=== PATIENT | female | born 1950 | race African-American/Black ===

== ENCOUNTER 2019-01-28 18:02 | Emergency (ER) | payer MEDICARE, MEDICAID ==
[~2019-01-28] VITALS: Ht 162.6 cm; Wt 57.0 kg
[~2019-01-28 18:02] MED LIST: ASPI-986 PO; BENA40TA9 PO; GLIP5TAB12; INSU100C11 SQ; INSU3INS8 SQ; LIP40 PO; METO-385 PO; PRAV80TA21; QUIN20TA30; RANI150T7; SITA1TAB8
[2019-01-28] MEDS ORDERED: ALBUTEROL (0.083%) 2.5MG/3ML NEB HHN STA (18:31)
[2019-01-28] MEDS ORDERED: IPRATROPIUM BROMIDE (0.02%) 0.5MG/2.5ML NEB HHN STA (18:31)
[2019-01-28] MEDS ORDERED: PREDNISONE 20MG TABLET PO ONE (19:00)
[2019-01-28 19:04] LABS: HEMATOCRIT. 36.4 % (36.0-48.0); HEMOGLOBIN. 11.4 g/dL (12.0-16.0); MEAN CORPUSCULAR HEMOGLOBIN 19.2 pg (28.0-32.0); MEAN CORPUSCULAR VOLUME 61.1 fL (81.0-99.0); MEAN PLATELET VOLUME 9.7 fl (7.4-10.4); MONOCYTES % 9.8 % (2.0-8.0); NEUTROPHILS % 70.2 % (40.0-76.0); PLATELET 134 x1000/uL (130-400); RED BLOOD CELL COUNT 5.96 mill/uL (4.2-5.4); RED CELL DISTRIBUTION WIDTH 16.7 % (11.6-14.6)
[2019-01-28 19:11] LABS: CHLORIDE 101 mEq/L (98-107); INR 1.1; PROTHROMBIN TIME 10.6 sec (9.1-11.1)
[2019-01-28] MEDS ORDERED: DOXYCYCLINE HYCLATE 100MG CAPSULE PO ONE (20:00)
[2019-01-28 20:20] LABS: PLATELET ESTIMATE NORMAL
[2019-01-28] MEDS ORDERED: INSULIN REGULAR (HUMULIN R) 300UNITS/3ML SUBCUT ONE (23:15)
[2019-01-29 01:16] VITALS: BP 128/60
[2019-01-29] MEDS ORDERED: INSULIN REGULAR (HUMULIN R) 300UNITS/3ML SUBCUT ONE (01:30)
== END 2019-01-29 01:55 | disposition short-term general hospital (02) ==
LOC: ER 18:02 → CANBEDREQ 01-29 03:18
DX: R06.00 Dyspnea, unspecified (principal); J40 Bronchitis, not specified as acute or chronic; J44.9 Chronic obstructive pulmonary disease, unspecified; E78.00 Pure hypercholesterolemia, unspecified; I10 Essential (primary) hypertension; E11.9 Type 2 diabetes mellitus without complications; Z79.4 Long term (current) use of insulin; Z88.5 Allergy status to narcotic agent; Z88.8 Allergy status to other drugs, medicaments and biological substances; Z79.82 Long term (current) use of aspirin
CPT/HCPCS: 36415; 71045; 80053; 82962; 83605; 83880; 84484; 85025; 85610; 87804; 93005; 94640; 96372; 99285; J1815; J7512; J7611

== ENCOUNTER 2020-06-20 01:57 | Inpatient (IN) | payer MEDICARE, MEDICAID ==
[~2020-06-20] VITALS: Ht 152.4 cm; Wt 58.6 kg
[~2020-06-20 01:57] MED LIST changes: +ALBU18HF2 IH; +ASPI-1497 MT; -ASPI-986 PO; +FLUT1DIS3 INH; +GLIP10TA10 MT; +MED4 MT; +MONT10TA26 PO; +P20 MT
[2020-06-20] MEDS ORDERED: IPRATROPIUM BROMIDE (0.02%) 0.5MG/2.5ML NEB HHN STA (02:34)
[2020-06-20] MEDS ORDERED: METHYLPREDNISOLONE SOD SUCC 125 MG/2 ML VIAL IV STA (02:34)
[2020-06-20] MEDS ORDERED: ONDANSETRON HCL 4MG/2ML INJ IV STA (02:34)
[2020-06-20] MEDS ORDERED: SODIUM CHLORIDE 0.9% 1,000 ML IV ONE (02:36)
[2020-06-20 03:04] LABS: CHLORIDE 102 mEq/L (98-107)
[2020-06-20] MEDS: ALBUTEROL (0.083%) 2.5MG/3ML NEB HHN SCH (03:08)
[2020-06-20 03:09] LABS: BASOPHILS % 1.1 % (0.0-2.0); EOSINOPHILS % 4.3 % (0.0-5.0); HEMATOCRIT. 37.1 % (36.0-48.0); HEMOGLOBIN. 11.3 g/dL (12.0-16.0); LYMPHOCYTES % 30.5 % (20.0-50.0); MEAN CORPUSCULAR HEMOGLOBIN 19.8 pg (28.0-32.0); MEAN CORPUSCULAR VOLUME 64.8 fL (81.0-99.0); MEAN PLATELET VOLUME 9.8 fl (7.4-10.4); MONOCYTES % 4.5 % (2.0-8.0); NEUTROPHILS % 59.6 % (40.0-76.0); PLATELET 139 x1000/uL (130-400); RED BLOOD CELL COUNT 5.73 mill/uL (4.2-5.4); RED CELL DISTRIBUTION WIDTH 18.3 % (11.6-14.6)
[2020-06-20 03:15] LABS: BG CARBOXYHEMOGLOBIN 0.3 % (0.5-1.5); BG DEOXYHEMOGLOBIN 0.6 % (0.0-5.0); BG FRACTION INSPIRED OXYGEN 100; BG HCO3 ACT 23.5 mmol/L (22.0-26.0); BG METHEMOGLOBIN 0.6 % (0.0-1.5); BG OXYGEN SATURATION 99.4 % (92.0-98.5); BG OXYHEMOGLOBIN 98.5 % (94.0-97.0); BG PCO2 53.5 mmHg (35.0-45.0); BG PO2 256.7 mmHg (75.0-100.0); BG SAMPLE SITE RIGHT RADIAL; BG TOTAL HEMOGLOBIN 11.5 g/dL (12.0-18.0); BG VENT MODE MASK - NRB
[2020-06-20 03:18] LABS: PLATELET ESTIMATE NORMAL
[2020-06-20] MEDS ORDERED: INSULIN LISPRO 100 UNITS/ML SUBCUT NR ×2 (08:28→11:03)
[2020-06-20] MEDS ORDERED: DEXTROSE 50% WATER 50ML SYRINGE IV PRN (10:30)
[2020-06-20] MEDS ORDERED: IPRATROPIUM/ALBUTEROL 0.5-3(2.5)MG/3ML NEB HHN SCH (12:00)
[2020-06-20] MEDS ORDERED: INSULIN GLARGINE UD 100 UNITS/ML SYR SUBCUT NR (12:00)
[2020-06-20] MEDS: ENOXAPARIN 30MG/0.3ML SYR SUBCUT SCH (12:00)
[2020-06-20] MEDS: BLOOD SUGAR DIAGNOSTIC STRIP TEST SCH ×3 (13:05→21:14)
[2020-06-20] MEDS: INSULIN LISPRO 100 UNITS/ML SUBCUT SCH ×4 (13:20→21:00)
[2020-06-20] MEDS ORDERED: ALBUTEROL 6.7GM HFA INHALER ORI SCH (20:00)
[2020-06-20] MEDS ORDERED: METHYLPREDNISOLONE SOD SUCC 125 MG/2 ML VIAL IV SCH (20:00)
[2020-06-20] MEDS ORDERED: INSULIN GLARGINE UD 100 UNITS/ML SYR SUBCUT SCH (22:00)
[2020-06-21 01:34] VITALS: BP 148/73
[2020-06-21 04:00] VITALS: BP 111/61
[2020-06-21] MEDS ORDERED: METHYLPREDNISOLONE SOD SUCC 125 MG/2 ML VIAL IV SCH (06:00)
[2020-06-21] MEDS: METHYLPREDNISOLONE SOD SUCC 125 MG/2 ML VIAL IV SCH ×3 (06:34→17:44)
[2020-06-21] MEDS: BLOOD SUGAR DIAGNOSTIC STRIP TEST SCH ×4 (06:42→20:53)
[2020-06-21] MEDS: INSULIN LISPRO 100 UNITS/ML SUBCUT SCH ×4 (06:52→21:09)
[2020-06-21 07:30] LABS: BASOPHILS % 0.6 % (0.0-2.0); HEMATOCRIT. 32.6 % (36.0-48.0); HEMOGLOBIN. 10.1 g/dL (12.0-16.0); LYMPHOCYTES % 12.1 % (20.0-50.0); MEAN CORPUSCULAR HEMOGLOBIN 20.2 pg (28.0-32.0); MEAN CORPUSCULAR VOLUME 65.1 fL (81.0-99.0); MONOCYTES % 1.2 % (2.0-8.0); NEUTROPHILS % 86.1 % (40.0-76.0); PLATELET 131 x1000/uL (130-400); RED CELL DISTRIBUTION WIDTH 18.4 % (11.6-14.6)
[2020-06-21 08:00] VITALS: BP 123/57
[2020-06-21] MEDS: ENOXAPARIN 30MG/0.3ML SYR SUBCUT SCH (08:33)
[2020-06-21] MEDS: ALBUTEROL 6.7GM HFA INHALER ORI PRN ×2 (08:59→12:35)
[2020-06-21] MEDS ORDERED: SODIUM POLYSTYRENE SULFONATE 15 G/60 ML BOT PO NR (09:00)
[2020-06-21] MEDS: INSULIN GLARGINE UD 100 UNITS/ML SYR SUBCUT SCH ×2 (09:12→22:32)
[2020-06-21] MEDS ORDERED: ACETAZOLAMIDE SODIUM 500MG/VIAL IV NR (10:30)
[2020-06-21 12:00] VITALS: BP 127/91
[2020-06-21] MEDS: IPRATROPIUM/ALBUTEROL 0.5-3(2.5)MG/3ML NEB HHN SCH ×3 (13:08→20:30)
[2020-06-21 16:00] VITALS: BP_SYST 127; BP_SYST 140; BP_DIAS 60; BP_DIAS 91
[2020-06-21] MEDS: SODIUM CHLORIDE 0.9% 1,000 ML IV SCH (17:44)
[2020-06-21 20:00] VITALS: BP 131/56
[2020-06-22] VITALS: BP 122/63
[2020-06-22] MEDS: METHYLPREDNISOLONE SOD SUCC 125 MG/2 ML VIAL IV SCH ×5 (00:44→23:06)
[2020-06-22] MEDS: IPRATROPIUM/ALBUTEROL 0.5-3(2.5)MG/3ML NEB HHN SCH ×6 (00:53→20:00)
[2020-06-22 04:00] VITALS: BP 108/54
[2020-06-22] MEDS: BLOOD SUGAR DIAGNOSTIC STRIP TEST SCH ×4 (06:30→21:33)
[2020-06-22] MEDS ORDERED: GLIPIZIDE 10MG TABLET PO SCH (06:45)
[2020-06-22] MEDS: SODIUM CHLORIDE 0.9% 1,000 ML IV SCH ×2 (07:15→23:07)
[2020-06-22] MEDS: INSULIN LISPRO 100 UNITS/ML SUBCUT SCH ×7 (07:18→21:34)
[2020-06-22 08:00] VITALS: BP 131/84
[2020-06-22] MEDS: ENOXAPARIN 30MG/0.3ML SYR SUBCUT SCH (08:49)
[2020-06-22 09:45] LABS: BG BASE EXCESS -5.2 mmol/L (-2.0-2.0); BG CARBOXYHEMOGLOBIN 0.3 % (0.5-1.5); BG DEOXYHEMOGLOBIN 2.7 % (0.0-5.0); BG FRACTION INSPIRED OXYGEN 28; BG HCO3 ACT 19.8 mmol/L (22.0-26.0); BG METHEMOGLOBIN 0.5 % (0.0-1.5); BG OXYGEN SATURATION 97.3 % (92.0-98.5); BG OXYHEMOGLOBIN 96.5 % (94.0-97.0); BG PCO2 36.1 mmHg (35.0-45.0); BG PH 7.356 (7.350-7.450); BG PO2 99.1 mmHg (75.0-100.0); BG SAMPLE SITE RIGHT RADIAL; BG TOTAL HEMOGLOBIN 9.8 g/dL (12.0-18.0); BG VENT MODE NASAL CANNULA
[2020-06-22] MEDS ORDERED: LIDOCAINE HCL/PF 1% 2ML VIAL ONE (09:53)
[2020-06-22] MEDS: INSULIN GLARGINE UD 100 UNITS/ML SYR SUBCUT SCH ×2 (10:00→21:35)
[2020-06-22] MEDS ORDERED: ACETAZOLAMIDE SODIUM 500MG/VIAL IV NR (11:00)
[2020-06-22 12:00] VITALS: BP 100/57
[2020-06-22] MEDS ORDERED: P20 MT (13:56)
[2020-06-22] MEDS ORDERED: GLIP10TA10 MT (13:56)
[2020-06-22 16:00] VITALS: BP 124/46
[2020-06-22] MEDS: GLIPIZIDE 10MG TABLET PO SCH (17:11)
[2020-06-22 20:00] VITALS: BP 116/42
[2020-06-23] VITALS: BP 122/46
[2020-06-23 04:00] VITALS: BP 137/46
[2020-06-23] MEDS: GLIPIZIDE 10MG TABLET PO SCH ×2 (06:22→17:26)
[2020-06-23] MEDS: BLOOD SUGAR DIAGNOSTIC STRIP TEST SCH ×4 (06:22→21:08)
[2020-06-23] MEDS: METHYLPREDNISOLONE SOD SUCC 125 MG/2 ML VIAL IV SCH ×2 (06:22→12:18)
[2020-06-23] MEDS: INSULIN LISPRO 100 UNITS/ML SUBCUT SCH ×7 (06:23→21:44)
[2020-06-23 07:56] VITALS: BP 158/67
[2020-06-23] MEDS: IPRATROPIUM/ALBUTEROL 0.5-3(2.5)MG/3ML NEB HHN SCH ×4 (08:42→20:13)
[2020-06-23] MEDS: ENOXAPARIN 30MG/0.3ML SYR SUBCUT SCH (08:58)
[2020-06-23] MEDS: INSULIN GLARGINE UD 100 UNITS/ML SYR SUBCUT SCH ×2 (09:44→21:44)
[2020-06-23 12:00] VITALS: BP 148/61
[2020-06-23] MEDS: SODIUM CHLORIDE 0.9% 1,000 ML IV SCH ×2 (12:19→22:14)
[2020-06-23 16:00] VITALS: BP 148/45
[2020-06-23] MEDS: METHYLPREDNISOLONE SOD SUCC 40 MG/ML VIAL IV SCH (17:26)
[2020-06-23 20:00] VITALS: BP 149/49
[2020-06-24] VITALS (7 sets, daily range): BP systolic 130–173; BP diastolic 52–71
[2020-06-24] MEDS: IPRATROPIUM/ALBUTEROL 0.5-3(2.5)MG/3ML NEB HHN SCH ×6 (00:27→20:24)
[2020-06-24] MEDS: BLOOD SUGAR DIAGNOSTIC STRIP TEST SCH ×4 (06:44→21:14)
[2020-06-24] MEDS: INSULIN LISPRO 100 UNITS/ML SUBCUT SCH ×6 (06:45→21:37)
[2020-06-24] MEDS: GLIPIZIDE 10MG TABLET PO SCH (06:57)
[2020-06-24] MEDS: ENOXAPARIN 30MG/0.3ML SYR SUBCUT SCH (09:00)
[2020-06-24] MEDS: METHYLPREDNISOLONE SOD SUCC 40 MG/ML VIAL IV SCH ×2 (09:00→17:02)
[2020-06-24] MEDS: INSULIN GLARGINE UD 100 UNITS/ML SYR SUBCUT SCH (09:44)
[2020-06-24] MEDS: SODIUM CHLORIDE 0.9% 1,000 ML IV SCH (12:15)
[2020-06-24] MEDS ORDERED: CLONIDINE 0.1MG TABLET PO PRN (21:00)
[2020-06-24] MEDS: ALBUTEROL 6.7GM HFA INHALER ORI PRN (21:06)
[2020-06-24] MEDS: BENZONATATE 100MG CAPSULE PO PRN (21:07)
[2020-06-24] MEDS: AMLODIPINE 10MG TABLET PO SCH (21:07)
[2020-06-25] VITALS (7 sets, daily range): BP systolic 131–145; BP diastolic 49–67
[2020-06-25] MEDS: SODIUM CHLORIDE 0.9% 1,000 ML IV SCH ×2 (01:32→14:35)
[2020-06-25] MEDS: INSULIN LISPRO 100 UNITS/ML SUBCUT SCH ×4 (06:46→17:44)
[2020-06-25] MEDS: BLOOD SUGAR DIAGNOSTIC STRIP TEST SCH ×3 (06:46→17:14)
[2020-06-25] MEDS: METHYLPREDNISOLONE SOD SUCC 40 MG/ML VIAL IV SCH (08:35)
[2020-06-25] MEDS: AMLODIPINE 10MG TABLET PO SCH (08:36)
[2020-06-25] MEDS: BENZONATATE 100MG CAPSULE PO PRN (08:36)
[2020-06-25] MEDS: ENOXAPARIN 30MG/0.3ML SYR SUBCUT SCH (08:36)
[2020-06-25] MEDS: IPRATROPIUM/ALBUTEROL 0.5-3(2.5)MG/3ML NEB HHN SCH ×3 (08:40→15:23)
[2020-06-25] MEDS ORDERED: BUDESONIDE 0.5MG/2ML NEB HHN SCH (16:00)
[2020-06-25] MEDS ORDERED: GUAIFENESIN 600MG ER TABLET PO SCH (21:00)
[2020-06-26] MEDS ORDERED: PREDNISONE 20MG TABLET PO SCH (07:15)
== END 2020-06-25 21:31 | disposition home health service (06) | DRG 140 ==
LOC: ER 01:57 → 5WST 05:00 → EDBEDREQTM 05:12 → EDBEDREQ 05:12 → ENRESERV 20:59 → CANRESERV 20:59 → ENRESERV 23:23
PROVIDERS: ADMIT Internal Medicine; ATTEND Internal Medicine
DX: J44.1 Chronic obstructive pulmonary disease with (acute) exacerbation (principal); J96.22 Acute and chronic respiratory failure with hypercapnia; D64.9 Anemia, unspecified; E87.1 Hypo-osmolality and hyponatremia; E11.65 Type 2 diabetes mellitus with hyperglycemia; I10 Essential (primary) hypertension; R74.0 Nonspecific elevation of levels of transaminase and lactic acid dehydrogenase [LDH]; E78.5 Hyperlipidemia, unspecified; E87.2 Acidosis; Z60.2 Problems related to living alone; R07.81 Pleurodynia; I48.91 Unspecified atrial fibrillation; Z20.828 Contact with and (suspected) exposure to other viral communicable diseases; Z90.710 Acquired absence of both cervix and uterus; Z88.6 Allergy status to analgesic agent; Z88.8 Allergy status to other drugs, medicaments and biological substances; Z79.82 Long term (current) use of aspirin; Z99.81 Dependence on supplemental oxygen; Z79.4 Long term (current) use of insulin; Z87.891 Personal history of nicotine dependence; Z79.899 Other long term (current) drug therapy
CPT/HCPCS: 36415; 36600; 71045; 80048; 80053; 82375; 82805; 82962; 83605; 83880; 84484; 85025; 93005; 94640; 94644; 97162; 99291; J1120; J1650; J1815; J2405; J2920; J2930; J3490; J7030; J7626; C9803-CS; U0003-CS

== ENCOUNTER 2022-11-17 16:18 | Inpatient (IN) | payer MEDICARE, OTHER ==
[~2022-11-17] VITALS: Ht 162.6 cm; Wt 57.6 kg
[~2022-11-17 16:18] MED LIST changes: -BENA40TA9 PO; +BENA40TA91 PO; -GLIP5TAB12; -MED4 MT; +MONT-39 PO; -MONT10TA26 PO
[2022-11-17 17:28] LABS: BASOPHILS % 1.7 % (0.0-2.0); EOSINOPHILS % 1.2 % (0.0-5.0); HEMATOCRIT. 33.8 % (36.0-48.0); HEMOGLOBIN. 10.2 g/dL (12.0-16.0); LYMPHOCYTES % 19.1 % (20.0-50.0); MEAN CORPUSCULAR HEMOGLOBIN 17.4 pg (28.0-32.0); MEAN CORPUSCULAR VOLUME 57.6 fL (81.0-99.0); MONOCYTES % 4.2 % (2.0-8.0); NEUTROPHILS % 73.8 % (40.0-76.0); RED BLOOD CELL COUNT 5.86 mill/uL (4.2-5.4); RED CELL DISTRIBUTION WIDTH 17.4 % (11.6-14.6)
[2022-11-17 17:34] LABS: PROTHROMBIN TIME 10.8 sec (9.6-11.0)
[2022-11-17 17:35] LABS: CHLORIDE 106 mEq/L (98-107)
[2022-11-17 18:29] LABS: MEAN PLATELET VOLUME 9.2 fl (7.4-10.4); PLATELET 202 x1000/uL (130-400); PLATELET ESTIMATE NORMAL
[2022-11-17] MEDS ORDERED: SODIUM CHLORIDE 0.9% 1,000 ML IV ONE (21:30)
[2022-11-17] MEDS ORDERED: CEFTRIAXONE 1 G PREMIX 50 ML IV ONE (23:30)
[2022-11-17] MEDS ORDERED: AZITHROMYCIN 500MG/250ML 250 ML IV ONE (23:30)
[2022-11-17 23:41] LABS: CLARITY URINE CLEAR (CLEAR); COLOR URINE YELLOW (YELLOW); KETONES URINE NEGATIVE (NEGATIVE); LEUKOCYTE ESTERASE URINE TRACE (NEGATIVE); NITRITE URINE NEGATIVE (NEGATIVE); OCCULT BLOOD URINE 2+ (NEGATIVE); PH URINE 7.5 (4.5-8.0); PROTEIN URINE 3+ (NEGATIVE); SPECIFIC GRAVITY URINE 1.013 (1.005-1.030); UROBILINOGEN URINE 0.2 E.U./dL (0.2-1.0)
[2022-11-18] MEDS ORDERED: AZITHROMYCIN 500MG/250ML 250 ML IV NR (01:15)
[2022-11-18] MEDS ORDERED: CEFTRIAXONE 1 G PREMIX 50 ML IV NR (01:15)
[2022-11-18] MEDS ORDERED: ONDANSETRON HCL 4MG/2ML INJ IV PRN (10:45)
[2022-11-18] MEDS ORDERED: ACETAMINOPHEN 325MG TABLET PO PRN (10:45)
[2022-11-18] MEDS ORDERED: DEXTROSE 50% WATER 50ML SYRINGE IV PRN (10:45)
[2022-11-18] MEDS: SODIUM CHLORIDE 0.45% 1,000 ML IV SCH (10:58)
[2022-11-18] MEDS: IPRATROPIUM/ALBUTEROL 0.5-3(2.5)MG/3ML NEB HHN SCH ×3 (12:50→21:43)
[2022-11-18] MEDS: INSULIN LISPRO 100 UNITS/ML SUBCUT SCH ×3 (13:20→20:46)
[2022-11-18] MEDS: BLOOD SUGAR DIAGNOSTIC STRIP TEST SCH ×4 (13:59→20:40)
[2022-11-18 16:50] VITALS: BP 144/58
[2022-11-18 20:00] VITALS: BP 151/59
[2022-11-19] VITALS (7 sets, daily range): BP systolic 129–177; BP diastolic 55–79
[2022-11-19] MEDS: IPRATROPIUM/ALBUTEROL 0.5-3(2.5)MG/3ML NEB HHN SCH ×4 (02:45→20:12)
[2022-11-19] MEDS: SODIUM CHLORIDE 0.45% 1,000 ML IV SCH (05:49)
[2022-11-19] MEDS: INSULIN LISPRO 100 UNITS/ML SUBCUT SCH ×4 (06:36→20:04)
[2022-11-19] MEDS: BLOOD SUGAR DIAGNOSTIC STRIP TEST SCH ×4 (06:36→20:04)
[2022-11-19 09:35] LABS: BASOPHILS % 1.2 % (0.0-2.0); EOSINOPHILS % 1.8 % (0.0-5.0); HEMATOCRIT. 28.5 % (36.0-48.0); HEMOGLOBIN. 8.6 g/dL (12.0-16.0); LYMPHOCYTES % 19.8 % (20.0-50.0); MEAN CORPUSCULAR HEMOGLOBIN 17.5 pg (28.0-32.0); MEAN CORPUSCULAR VOLUME 57.7 fL (81.0-99.0); MONOCYTES % 5.4 % (2.0-8.0); NEUTROPHILS % 71.8 % (40.0-76.0); RED BLOOD CELL COUNT 4.94 mill/uL (4.2-5.4); RED CELL DISTRIBUTION WIDTH 17.7 % (11.6-14.6)
[2022-11-19 10:08] LABS: PLATELET 166 x1000/uL (130-400)
[2022-11-19] MEDS: AMLODIPINE 10MG TABLET PO SCH (17:28)
[2022-11-20] VITALS: BP 133/77
[2022-11-20] MEDS: SODIUM CHLORIDE 0.45% 1,000 ML IV SCH (00:25)
[2022-11-20 03:55] VITALS: BP 140/85
[2022-11-20] MEDS: INSULIN LISPRO 100 UNITS/ML SUBCUT SCH ×3 (06:38→17:20)
[2022-11-20] MEDS: BLOOD SUGAR DIAGNOSTIC STRIP TEST SCH ×3 (06:38→17:11)
[2022-11-20 07:30] VITALS: BP 174/86
[2022-11-20] MEDS: IPRATROPIUM/ALBUTEROL 0.5-3(2.5)MG/3ML NEB HHN SCH ×2 (08:31→15:51)
[2022-11-20] MEDS: AMLODIPINE 10MG TABLET PO SCH (09:29)
[2022-11-20 12:00] VITALS: BP 162/66
[2022-11-20] MEDS ORDERED: PREDNISONE 20MG TABLET PO NR (15:15)
[2022-11-20 16:30] VITALS: BP 160/74
[2022-11-20 17:22] LABS: BASOPHILS % 1.2 % (0.0-2.0); EOSINOPHILS % 4.9 % (0.0-5.0); HEMOGLOBIN. 8.2 g/dL (12.0-16.0); LYMPHOCYTES % 13.9 % (20.0-50.0); MEAN CORPUSCULAR HEMOGLOBIN 17.4 pg (28.0-32.0); MONOCYTES % 3.2 % (2.0-8.0); NEUTROPHILS % 76.8 % (40.0-76.0); RED BLOOD CELL COUNT 4.73 mill/uL (4.2-5.4); RED CELL DISTRIBUTION WIDTH 17.5 % (11.6-14.6)
[2022-11-20 18:34] LABS: PLATELET 166 x1000/uL (130-400)
[2022-11-20 18:38] VITALS: BP 160/74
== END 2022-11-20 20:04 | disposition home or self-care (01) | DRG 48 ==
LOC: ER 16:27 → MICUSO 11-18 03:32 → 7EST 11-18 16:38
PROVIDERS: ADMIT Internal Medicine; ATTEND Internal Medicine
DX: G90.8 Other disorders of autonomic nervous system (principal); N17.0 Acute kidney failure with tubular necrosis; E44.0 Moderate protein-calorie malnutrition; I50.9 Heart failure, unspecified; I11.0 Hypertensive heart disease with heart failure; E11.9 Type 2 diabetes mellitus without complications; D64.9 Anemia, unspecified; J44.9 Chronic obstructive pulmonary disease, unspecified; Z20.822 Contact with and (suspected) exposure to COVID-19; Z88.5 Allergy status to narcotic agent; Z91.09 Other allergy status, other than to drugs and biological substances
CPT/HCPCS: 36415; 70551; 71045; 74176; 80048; 80053; 81003; 82962; 83605; 83880; 84484; 85025; 87426; 87804; 93005; 94640; 97162; 97535; 99285; C1893; C9803; J0456; J0696; J1815; J7030; J7512